=== PATIENT | female | born 1960 | race Caucasian/White ===

== ENCOUNTER 2016-04-01 12:20 | Day surgery (SDC) | payer OTHER ==
[~2016-04-01] VITALS: Ht 172.7 cm; Wt 72.2 kg
[~2016-04-01 12:20] MED LIST: CeFAZolin 2 Gm/50 mL D5W IV Premix IV ONE; LEVO100T97 PO; Lactated Ringer's 1,000 ML IV SCH
[2016-04-01] MEDS ORDERED: Propofol 10,000 mCg/mL 20 mL Inj ONE (12:21)
[2016-04-01] MEDS ORDERED: Lidocaine PF 1% 30 mL Inj ONE (12:21)
[2016-04-01 13:10] VITALS: BP 146/80; PULSE 61; RESP 16; O2SAT 99
[2016-04-01] MEDS ORDERED: CeFAZolin 2 Gm/50 mL D5W Duplex Bag IV ONE (13:25)
[2016-04-01] MEDS ORDERED: Lactated Ringer's 1,000 ML IV ONE (14:00)
[2016-04-01] MEDS ORDERED: Lactated Ringer's 1,000 ML IV SCH (15:01)
[2016-04-01] MEDS ORDERED: Lactated Ringer's 500 ML IV PRN (15:01)
--- NOTE | 2016-04-01 15:01 | PCM.HPANE ---
Patient Data Surgeon Admitting Provider: Attending Provider:James Pacheco MD Primary Care Physician:Varun Luna MD Other Provider:Yadira Falk Anesthesia Reason for Visit Left Breast Cancer Ht/WT & BMI Height (Feet): 5 Height (Inches): 8 Weight (Kilograms): 72.2 Body Mass Index 24.00 Allergies Coded Allergies: No Known Allergies (Verified Allergy, Unknown, 03/31/16) Past Anesthesia History Anesthesia History: Denies:: Anesthesia Reactions, Fam Anesthesia Reaction, Malignant Hyperthermia Diabetes History Hx Diabetes?: No MRSA MRSA: No Medications Home Meds Incl Beta Solitario: No Reported Medications Levothyroxine (Synthroid)100 Mcg [id number] Mcg PO DAILY Ref 0 03/20/16 History History of ENT Problems?: No Hx of Heart Problems?: No Hx of Respiratory Problem?: No Hx Neurologic Problems?: No Hx of GI Problems?: No Hx of Problems?: No Female Hx: Positive for:: Problems with Breasts? (03/2016 ) Denies:: Currently (post menopausal) Hx Musculoskeletal Problems?: Yes Hx of Psycho/Social Problems?: No Hx Surgeries?: Yes (r carpal tunnel, ovarian cyst, ) Hx Any Other Health Problems?: No Other History: Positive for:: Cancer (l breast) Endocrine Disease Thyroid Disease (hypo) Hx Diabetes: No Hx Alcohol Use: NoHx Substance Use: No Stop/Bang ANTHONY Risk Assessment: Low Risk, <3 Yes Risk Assessment Category Category 1A: Patient has history of documented sleep apnea, and HAS NOT received any narcotic, sedative or anesthesia administration during this stay. Category 1B: Patient has history of documented sleep apnea, and HAS received any narcotic , sedative or anesthesia administration during this stay Category 2: Patient has SUSPECTED Obstructive Sleep Apnea, and HAS received any narcotic , sedative or anesthesia administration during this stay. Category 3: Patient has SUSPECTED Obstructive Sleep Apnea and HAS NOT received narcotic, sedative or anesthesia administration during this stay. Category 4: Outpatient in Procedural Areas with known sleep apnea or who screen positive for High Risk via the STOP/BANG questionnaire. Exam Exam Vital Signs Vital Signs Date Time Temp Pulse Resp B/P Pulse Ox O2 Delivery O2 Flow Rate FiO2 04/01/16 13:10 36.7 61 16 146/80 99 Room Air General Appearance: Alert HEENT/AIRWAY: MP 3 Lungs: Clear to Auscultation Heart: Exam Unremarkable Plan Impression Patient chart reviewed, patient interviewed and anesthestic plan with risks, benefits, and alternatives discussed, and informed consent obtained. NPO Status: 1000 04/01/16 ASA Physical Status: ASA2 Mod Systemic Disease Anesthetic Plan: MAC Bene/Risks/Altern/Consents: Yes HP Complete Prior to Induction: Yes Joey Middleton DO Apr 01, 2016 13:58
[2016-04-01] MEDS ORDERED: fentaNYL-PF 50 mCg/mL 2 mL Inj IVPUSH PRN (15:05)
[2016-04-01] MEDS ORDERED: HYDROmorphone 1 mg/mL Inj IVPUSH PRN (15:05)
[2016-04-01] MEDS ORDERED: Ondansetron 2 mg/mL 2 mL Inj IVPUSH PRN (15:05)
[2016-04-01] MEDS ORDERED: EPHEDrine Sulfate 50 mg/mL Inj IVPUSH PRN (15:05)
[2016-04-01] MEDS ORDERED: Phenylephrine 10,000 mCg/mL Inj IVPUSH PRN (15:05)
[2016-04-01] MEDS ORDERED: Dexamethasone 4 mg/mL Inj IVPUSH PRN (15:05)
[2016-04-01] MEDS ORDERED: MetoCLOpramide 5 mg/mL 2 mL Inj IVPUSH PRN (15:05)
[2016-04-01] MEDS ORDERED: HepLOK Flush 10 Unit/mL 10 mL Inj IVFLUSH ONE (15:12)
[2016-04-01] MEDS ORDERED: Bupivacaine-MPF 0.5% 30 mL Inj INFILTRATE ONE (15:13)
[2016-04-01 15:59] VITALS: BP 160/95; PULSE 66; RESP 16; O2SAT 100
--- NOTE | 2016-04-01 16:01 | PCM.ANEP2 ---
Post Anesthesia Evaluation ASA/CMS Post Anesthesia VS in Patient's Normal Range?: Yes Resp Stable; Airway Patent?: Yes CV Function & Hydration Stable: Yes Mental Status Recovered?: Yes Pain control Satisfactory?: Yes N/V Control Satisfactory?: Yes Joey Middleton DO Apr 01, 2016 16:01
--- NOTE | 2016-04-01 16:01 | PCM.ANEP1 ---
Post Anesthesia Phase 1 PACU Phase 1 Assessment Vital Signs Vital Signs Date Time Temp Pulse Resp B/P Pulse Ox O2 Delivery O2 Flow Rate FiO2 04/01/16 13:10 36.7 61 16 146/80 99 Room Air Anesthetic Administered: MAC Level of Alertness: Awake, talking SEVERINO's with Equal Strength: Yes Pain: No Nausea or Vomiting: No Oxygen Delivery: Room Air Lungs: Clear to Auscultation Joey Middleton DO Apr 01, 2016 16:01
[2016-04-01 16:02] VITALS: BP 170/93; PULSE 63; RESP 16; O2SAT 100
--- NOTE | 2016-04-01 18:14 | OP ---
[address] [address] OPERATIVE REPORT PATIENT: CORA DENISE V : 1960 MR#: [id number] ADMIT: 04/01/2016 JOB ID: [id number] DATE OF SURGERY: 04/01/2016 SURGEON: James Pacheco MD PREOPERATIVE DIAGNOSIS(ES): Left breast cancer. POSTOPERATIVE DIAGNOSIS(ES): Left breast cancer. PROCEDURE PERFORMED: 1. Tunneled right internal jugular central venous catheter with subcutaneous venous port placement. 2. Intraoperative fluoroscopy. 3. Intraoperative ultrasound. COMPLICATIONS: None. CONDITION OF THE PATIENT: Stable. ANESTHESIA: Monitored anesthesia care with local. INDICATIONS: The patient is a 56-year-old lady who noticed a prominence in her left armpit and then felt a lump in her armpit. 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 She is scheduled to start neoadjuvant chemotherapy and after discussing the risks, benefits, and alternatives, she is here today for port placement. PROCEDURE DETAILS: She was placed in a supine position and underwent sedation. The neck and chest were prepped and draped in the usual sterile fashion. Surgical time-out was undertaken using safety checklist and all were in agreement. I began by examining the right neck under ultrasound guidance and we then infiltrated the skin with 0.5% bupivacaine and entered the right internal jugular vein under ultrasound guidance. After first entered with a micropuncture kit, I dilated the tract and placed a regular 35 mm guidewire and checked placement fluoroscopically to make sure we are on the right side of the heart. After that, I made a pocket over the right pectoralis and anchored the port with PDS suture, and tunneled the catheter from the port to the skin puncture site in the neck. I measured the required length of the catheter using the wire fluoroscopically and cut the catheter to the appropriate size and dilated the wire using the introducer dilator sheath and then advanced the catheter through the sheath. After the catheter was in position, I aspirated the port to make sure it is aspirating well and flushing well. A final x-ray was done to make sure the catheter is lying well, with no kinks, and after that the port was flushed with 100 units/mL of heparin. The skin was reapproximated with Monocryl and this was dressed with Dermabond. She was recovered from sedation and was taken to the recovery room in stable condition.
[2016-04-21] MEDS ORDERED: ONDA8TAB7 PO (10:19)
[2016-04-21] MEDS ORDERED: PROC-4 PO (10:19)
[2016-08-05] MEDS ORDERED: FAMO20T PO (08:39)
== END 2016-04-01 23:59 | disposition home or self-care (01) ==
LOC: SAS 12:20
PROVIDERS: ATTEND Student in an Organized Health Care Education/Training Program
DX: C50.412 Malignant neoplasm of upper-outer quadrant of left female breast (principal); Z17.0 Estrogen receptor positive status [ER+]; E03.9 Hypothyroidism, unspecified
CPT/HCPCS: 36561; 77001; C1788; C1892; C1894; J0690; J1642; J7120

== ENCOUNTER 2016-10-06 05:49 | Day surgery (SDC) | payer OTHER ==
[2016-10-06] VITALS (15 sets, daily range): BP systolic 108–156; BP diastolic 62–86; PULSE 61–94; RESP 14–20; O2SAT 95–100
[~2016-10-06] VITALS: Ht 172.7 cm; Wt 73.5 kg
[2016-10-06] MEDS: Lactated Ringer's 1,000 ML IV SCH ×4 (05:00→21:58)
[~2016-10-06 05:49] MED LIST changes: -CeFAZolin 2 Gm/50 mL D5W IV Premix IV ONE; +FAMO20T PO; -Lactated Ringer's 1,000 ML IV SCH; +ONDA8TAB7 PO; +PROC-4 PO
[2016-10-06] MEDS ORDERED: EPHEDrine/NS 5 mg/mL 5 mL Syringe ONE (05:50)
[2016-10-06] MEDS ORDERED: Propofol 10,000 mCg/mL 20 mL Inj ONE ×2 (05:50→17:50)
[2016-10-06] MEDS ORDERED: fentaNYL-PF 50 mCg/mL 2 mL Inj ONE (05:50)
[2016-10-06] MEDS: CeFAZolin 2 Gm/50 mL D5W IV Premix IV SCH ×3 (06:00→11:40)
[2016-10-06] MEDS ORDERED: Bupivacaine-MPF 0.5% 30 mL Inj INJ ONE (07:50)
[2016-10-06] MEDS ORDERED: Lactated Ringer's 500 ML IV PRN ×2 (08:26→22:04)
[2016-10-06] MEDS ORDERED: Lactated Ringer's 1,000 ML IV SCH ×2 (08:26→22:04)
--- NOTE | 2016-10-06 08:26 | PCM.HPANE ---
Patient Data Surgeon Admitting Provider: Attending Provider:James Pacheco MD Primary Care Physician:Ada Archuleta Other Provider:Yadira Falk Anesthesia Reason for Visit Left Breast Cancer Ht/WT & BMI Height (Feet): 5 Height (Inches): 8.00 Weight (Kilograms): 73.5 Body Mass Index 24.00 Allergies Coded Allergies: No Known Allergies (Verified Allergy, Unknown, 03/31/16) Past Anesthesia History Anesthesia History: Denies:: Abnormal Airway, Anesthesia Reactions, Difficult Intubation, Fam Anesthesia Reaction (sister does not tolerate some anes...), Malignant Hyperthermia Diabetes History Hx Diabetes?: No MRSA MRSA: No Medications Hypertension Medication: No Home Meds Incl Beta Solitario: No Reported Medications Famotidine (Pepcid)20 Mg [id number] Mg PO PRN PRN heartburn 08/05/16 Ondansetron ODT (Zofran ODT)8 Mg Tablet8 Mg PO q8hrs PRN For Nausea 04/21/16 Levothyroxine (Synthroid)100 Mcg [id number] Mcg PO DAILY Ref 0 03/20/16 Discontinued Reported Medications Prochlorperazine Maleate (Compazine)10 Mg Rlbppr26 Mg PO q4hrs prn 04/21/16 History History of ENT Problems?: No HEENT History: Denies:: Abnormal Airway Cataracts Difficult Intubation Dysphagia Glaucoma Hearing Problem Sinus Problem TMJ Denture Type: None Teeth Condition: Within Normal Limits Hx of Heart Problems?: No Cardiovascular History: Denies:: AICD Abdominal Aortic Aneurism Atrial Fibrillation Cardiac Surgery Chest Pain Edema Heart Murmur Hypertension Irregular Heartbeat Pacemaker Peripheral Vascular Rheumatic Fever Hx of Respiratory Problem?: No Respiratory History: Denies:: Asthma COPD Emphysema Oxygen Administration Use of C-PAP Machine Hx Neurologic Problems?: No Neurological History: Denies:: Alzheimer's Disease CVA Dizziness Headaches Multiple Sclerosis Parkinson's Disease Seizures Hx of GI Problems?: Yes Hx of Problems?: No Genitourinary History: Denies:: Kidney Stones Urinary Tract Infection Female Hx: Positive for:: Problems with Breasts? (left breast current admission problem) Denies:: Currently (post menopausal) Skin History: Denies:: History Skin Disorders? Pressure Ulcers Hx Musculoskeletal Problems?: No Musculoskeletal History: Denies:: Back Injury Fibromyalgia Joint Replacement Musculoskeletal Trauma Myasthenia Gravis Osteoarthritis Rheumatoid Arthritis Systemic Lupus Hx of Psycho/Social Problems?: No Psycho Social History: Denies:: Anxiety Hx Depression Hx Surgeries?: Yes (r carpal tunnel, ovarian cyst, ) Hx Any Other Health Problems?: Yes Other History: Positive for:: Cancer (breast- left) Endocrine Disease Thyroid Disease (hypo) History Blood Transfusions: Positive for:: Accept Blood Products? Denies:: Blood Transfusions Hx Diabetes: No Hx Alcohol Use: YesAlcoholic Drinks Per Day: one to two drinks weeklyHx Substance Use: No Smoking Status: Never Smoker Have You Smoked inLast 12 mo: No Stop/Bang S-Snoring: Do You Snore Loudly: No T-Tired: feel tired, fatigued: No O-Obsered: Observed not breath: No P-Blood Pressure: treated: No B- Body Mass Index > 35 kg/m2: No A- Age over 50: Yes N- Neck Large Circumference: No G- Gender Male: No ANTHONY Total Score: 1 ANTHONY Risk Assessment: Low Risk, <3 Yes Risk Assessment Category Category 1A: Patient has history of documented sleep apnea, and HAS NOT received any narcotic, sedative or anesthesia administration during this stay. Category 1B: Patient has history of documented sleep apnea, and HAS received any narcotic , sedative or anesthesia administration during this stay Category 2: Patient has SUSPECTED Obstructive Sleep Apnea, and HAS received any narcotic , sedative or anesthesia administration during this stay. Category 3: Patient has SUSPECTED Obstructive Sleep Apnea and HAS NOT received narcotic, sedative or anesthesia administration during this stay. Category 4: Outpatient in Procedural Areas with known sleep apnea or who screen positive for High Risk via the STOP/BANG questionnaire. Exam Exam Vital Signs Vital Signs Date Time Temp Pulse Resp B/P Pulse Ox O2 Delivery O2 Flow Rate FiO2 10/06/16 06:39 36.2 72 18 145/78 99 Room Air General Appearance: Alert HEENT/AIRWAY: MP 2, Neck Movement (from, 3 fb) Lungs: Clear to Auscultation Heart: Regular Rate/Rhythm Meds/Labs/Diagnostics Admission Meds Current Medications Lactated Ringer's (Lr) 1,000 ml @ 120 mls/hr Q8H20M IV Last administered on t 05:57; Start 10/06/16 at 05:00; Stop 10/06/16 at 13:19 Plan Impression Patient chart reviewed, patient interviewed and anesthestic plan with risks, benefits, and alternatives discussed, and informed consent obtained. NPO per Anesth. Guidelines: Yes ASA Physical Status: ASA2 Mod Systemic Disease Anesthetic Plan: GA Bene/Risks/Altern/Consents: Yes HP Complete Prior to Induction: Yes Other Discussed GA. All questions were answered and she agrees to proceed. Lester Lowery MD Oct 06, 2016 07:09
[2016-10-06] MEDS ORDERED: MetoCLOpramide 5 mg/mL 2 mL Inj IVPUSH PRN ×3 (08:30→22:05)
[2016-10-06] MEDS ORDERED: fentaNYL-PF 50 mCg/mL 2 mL Inj IVPUSH PRN ×2 (08:30→22:05)
[2016-10-06] MEDS ORDERED: EPHEDrine Sulfate 50 mg/mL Inj IVPUSH PRN ×2 (08:30→22:05)
[2016-10-06] MEDS ORDERED: Phenylephrine 10,000 mCg/mL Inj IVPUSH PRN ×2 (08:30→22:05)
[2016-10-06] MEDS ORDERED: Ondansetron 2 mg/mL 2 mL Inj IVPUSH PRN ×3 (08:30→22:05)
[2016-10-06] MEDS ORDERED: HYDROmorphone 1 mg/mL Inj IVPUSH PRN ×2 (08:30→22:05)
[2016-10-06] MEDS ORDERED: Dexamethasone 4 mg/mL Inj IVPUSH PRN (08:30)
[2016-10-06] MEDS ORDERED: Lactated Ringer's 1,000 ML IV ONE (12:25)
[2016-10-06] MEDS ORDERED: HYDROmorphone PCA 0.2 mg/mL 30 mL Inj IV PRN (15:50)
[2016-10-06] MEDS ORDERED: HYDROmorphone 0.5 mg/0.5 mL iSecure Syringe IVPUSH PRN (15:50)
--- NOTE | 2016-10-06 17:07 | OP ---
[address] [address] OPERATIVE REPORT PATIENT: CORA DENISE V : 1960 MR#: [id number] ADMIT: 10/06/2016 JOB ID: [id number] DATE OF SURGERY: 10/06/2016 SURGEON: James Pacheco MD ASSISTANTS: Jorge Frederick MD and Neno Fong PA-C and LATIA PaulIII PREOPERATIVE DIAGNOSIS(ES): T1 N3 invasive ductal carcinoma multifocal of the left breast, status post neoadjuvant chemotherapy. POSTOPERATIVE DIAGNOSIS(ES): T1 N3 invasive ductal carcinoma multifocal of the left breast, status post neoadjuvant chemotherapy. PROCEDURE PERFORMED: Right prophylactic mastectomy. Left modified radical mastectomy with extended lymph node dissection. ESTIMATED BLOOD LOSS: 20 mL. COMPLICATIONS: None. CONDITION OF THE PATIENT: Stable. INDICATIONS: The patient is a 56-year-old lady who noticed a prominence in her left armpit in January 2016. This made her feel her axilla and feel a lump there. She did not notice any mass in the breast. This prompted her to go see her primary provider and then she had imaging. She went on to be diagnosed with multifocal T1c N3 invasive carcinoma with extensive lymph node involvement in the axilla. She got neoadjuvant chemotherapy with dose-dense Adriamycin and Cytoxan followed by Taxol. After discussing the risks, benefits, and alternatives, she is here today for left modified radical mastectomy with right prophylactic simple mastectomy. PROCEDURE DETAILS: She was placed in supine position and underwent smooth induction of general anesthesia. Both breasts and axilla were prepped and draped in the usual sterile fashion. Surgical time-out was undertaken using safety checklist, and all were in agreement. I began by first marking the incisions and created an elliptical incision around the right areola and raised skin flaps on the breast superiorly to the clavicle, medially to the midline, inferiorly to the inframammary fold. We then raised flaps laterally to the latissimus dorsi, and then with good hemostasis lifted the breast off the pectoralis fascia controlling the perforators with a combination of ties or electrocautery as appropriate. After detaching the specimen from the patient, we marked it orienting it with stitch superiorly and sent it off the field. I then directed my attention to the left breast making an elliptical incision around the areola and raised skin flaps superiorly to the clavicle, medially to the midline, inferiorly to the inframammary fold and laterally to the latissimus dorsi. I then lifted the breast off the pectoralis fascia starting medially and extending laterally towards the axilla. I initially tried to remove the axillary lymph node packet and breast en bloc, but due to difficulty with manipulation, I ended up amputating the specimen between the tail and the axillary lymph nodes. I marked it with a stitch to the superior aspect of the breast. Then I proceeded with axillary dissection, dissecting the lymph node packet free from the chest wall, preserving the long thoracic nerve and thoracodorsal nerve superiorly going up to the axillary vein, controlling the branches with clips and ligatures as needed. After all the attachments were taken down laterally and posteriorly, I lifted the pectoralis minor to proceed from level I to level II and level III lymph nodes. But most of the lymph nodes I could actually palpate were in the level I area. I then proceeded to trace the lymph node-bearing tissue medially and dissected it with a combination of blunt and sharp dissection and control the vessels with clips. I was finally able to detach the specimen on the medial aspect of the pectoralis minor with some sampling of level III nodes. After that, we ensured hemostasis and placed drains and closed both incisions with the two layers of 3-0 Vicryl deep dermal, followed by 4-0 Monocryl subcuticular. Dermabond was applied as a dressing. Patient was recovered from anesthesia and was taken to the recovery room in stable condition. LISSETT
--- NOTE | 2016-10-06 17:14 | PCM.ANEP1 ---
Post Anesthesia PACU Phase 1 Assessment Vital Signs Vital Signs Date Time Temp Pulse Resp B/P Pulse Ox O2 Delivery O2 Flow Rate FiO2 10/06/16 16:54 69 20 146/84 98 Nasal Cannula 4 10/06/16 16:46 61 16 140/75 100 Simple Mask 8 10/06/16 16:33 62 19 117/63 100 Simple Mask 8 10/06/16 16:23 36.0 70 17 117/62 100 Simple Mask 8 Anesthetic Administered: GA Level of Alertness: Sleeping, hard to arouse SEVERINO's with Equal Strength: Yes Pain: No Nausea or Vomiting: No CV Function & Hydration Stable: Yes Airway Device: Oxygen Delivery: Simple Mask Lungs: Clear to Auscultation PACU Phase 2 Assessment Complications: No Follow up Care: N/A Patient Instructions Provided: N/A Lester Lowery MD Oct 06, 2016 17:14
[2016-10-06] MEDS ORDERED: Ondansetron 2 mg/mL 2 mL Inj ONE ×2 (17:50)
[2016-10-06] MEDS ORDERED: FENTANYL ONE (17:50)
[2016-10-06] MEDS ORDERED: Rocuronium 10 mg/mL 5 mL Inj ONE ×2 (17:50)
[2016-10-06] MEDS ORDERED: Glycopyrrolate 0.2 MG/ML 1mL Inj ONE (17:50)
[2016-10-06] MEDS ORDERED: HYDROmorphone 1 mg/mL Inj ONE (17:50)
[2016-10-06] MEDS ORDERED: Ketamine 10 mg/mL 20 mL Inj ONE (17:50)
[2016-10-06] MEDS ORDERED: Propofol 10 mg/mL 20 mL Inj ONE (17:50)
[2016-10-06] MEDS ORDERED: Remifentanil 1 mg/3 mL Inj ONE (17:50)
[2016-10-06] MEDS ORDERED: Dexamethasone 4 mg/mL Inj ONE (17:50)
[2016-10-06] MEDS ORDERED: Neostigmine 1 mg/mL 10 mL Inj ONE (17:50)
[2016-10-06] MEDS: Dextrose 5% Lactated Ringer's 1,000 ML IV SCH (18:03)
--- NOTE | 2016-10-06 19:50 | NUR ---
arrival pt arrived on floor at 1750 from PACU. On assessment, R mastectomy site appears to have some bruising in the lateral aspect near axilla. Monitored again after 30 min and it appears to have increased in size. Notified MD and plan to take pt back to OR for hematoma evacuation. 90 ml blood out of JASMIN in about 1 hr on floor. at bedside pt denies pain, states has some discomfort. will monitor. corea patent, yellow urine. PIV right wrist/FA patent, fluids infusing. Port R chest, not accessed. 2L NC on arrival, started on continuous pulse ox, 100%, placed on RA where sats remained at 100%. Pt maintained NPO after arrival on floor for return to surgery.
--- NOTE | 2016-10-06 21:40 | NUR ---
Return to OR JASMIN drain on R produced 90 ml in one hour, MD aware. Pt seen by Tara at shift change and decision to return to OR for hematoma on R breast. Pt medicated with 0.5 mg dilauded and comfortable in room. at bedside, he would like to be notified post-op #2 when she has returned. D5LR infusing RFA (R chest port not accessed), corea patent and draining. SCD in place, HOB at 30. Pt taken back to OR at 2140, awaiting report after Sx.
--- NOTE | 2016-10-06 21:50 | PCM.HPANE ---
Patient Data Surgeon Admitting Provider:James Pacheco MD Attending Provider:James Pacheco MD Primary Care Physician:Ada Archuleta Other Provider:Yadira Falk Anesthesia Reason for Visit Left Breast Cancer Ht/WT & BMI Height (Feet): 5 Height (Inches): 8.00 Weight (Kilograms): 73.5 Body Mass Index 24.00 Allergies Coded Allergies: No Known Allergies (Verified Allergy, Unknown, 03/31/16) Past Anesthesia History Anesthesia History: Denies:: Abnormal Airway, Anesthesia Reactions, Difficult Intubation, Fam Anesthesia Reaction (sister does not tolerate some anes...), Malignant Hyperthermia Diabetes History Hx Diabetes?: No MRSA MRSA: No Medications Hypertension Medication: No Home Meds Incl Beta Solitario: No Reported Medications Famotidine (Pepcid)20 Mg [id number] Mg PO PRN PRN heartburn 08/05/16 Ondansetron ODT (Zofran ODT)8 Mg Tablet8 Mg PO q8hrs PRN For Nausea 04/21/16 Levothyroxine (Synthroid)100 Mcg [id number] Mcg PO DAILY Ref 0 03/20/16 Discontinued Reported Medications Prochlorperazine Maleate (Compazine)10 Mg Hixnwx85 Mg PO q4hrs prn 04/21/16 History History of ENT Problems?: No HEENT History: Denies:: Abnormal Airway Cataracts Difficult Intubation Dysphagia Glaucoma Hearing Problem Sinus Problem TMJ Denture Type: None Teeth Condition: Within Normal Limits Hx of Heart Problems?: No Cardiovascular History: Denies:: AICD Abdominal Aortic Aneurism Atrial Fibrillation Cardiac Surgery Chest Pain Edema Heart Murmur Hypertension Irregular Heartbeat Pacemaker Peripheral Vascular Rheumatic Fever Hx of Respiratory Problem?: No Respiratory History: Denies:: Asthma COPD Emphysema Oxygen Administration Use of C-PAP Machine Hx Neurologic Problems?: No Neurological History: Denies:: Alzheimer's Disease CVA Dizziness Headaches Multiple Sclerosis Parkinson's Disease Seizures Hx of GI Problems?: Yes Hx of Problems?: No Genitourinary History: Denies:: Kidney Stones Urinary Tract Infection Female Hx: Positive for:: Problems with Breasts? (left breast current admission problem) Denies:: Currently (post menopausal) Skin History: Denies:: History Skin Disorders? Pressure Ulcers Hx Musculoskeletal Problems?: No Musculoskeletal History: Denies:: Back Injury Fibromyalgia Joint Replacement Musculoskeletal Trauma Myasthenia Gravis Osteoarthritis Rheumatoid Arthritis Systemic Lupus Hx of Psycho/Social Problems?: No Psycho Social History: Denies:: Anxiety Hx Depression Hx Surgeries?: Yes (r carpal tunnel, ovarian cyst, ) Hx Any Other Health Problems?: Yes Other History: Positive for:: Cancer (breast- left) Endocrine Disease Thyroid Disease (hypo) History Blood Transfusions: Positive for:: Accept Blood Products? Denies:: Blood Transfusions Hx Diabetes: No Hx Alcohol Use: YesAlcoholic Drinks Per Day: one to two drinks weekly Hx Substance Use: No Smoking Status: Never Smoker Have You Smoked inLast 12 mo: No Stop/Bang S-Snoring: Do You Snore Loudly: No T-Tired: feel tired, fatigued: No O-Obsered: Observed not breath: No P-Blood Pressure: treated: No B- Body Mass Index > 35 kg/m2: No A- Age over 50: Yes N- Neck Large Circumference: No G- Gender Male: No ANTHONY Total Score: 1 ANTHONY Risk Assessment: Low Risk, <3 Yes Risk Assessment Category Category 1A: Patient has history of documented sleep apnea, and HAS NOT received any narcotic, sedative or anesthesia administration during this stay. Category 1B: Patient has history of documented sleep apnea, and HAS received any narcotic , sedative or anesthesia administration during this stay Category 2: Patient has SUSPECTED Obstructive Sleep Apnea, and HAS received any narcotic , sedative or anesthesia administration during this stay. Category 3: Patient has SUSPECTED Obstructive Sleep Apnea and HAS NOT received narcotic, sedative or anesthesia administration during this stay. Category 4: Outpatient in Procedural Areas with known sleep apnea or who screen positive for High Risk via the STOP/BANG questionnaire. Low Risk, <3 Yes Exam Exam Vital Signs Vital Signs Date Time Temp Pulse Resp B/P Pulse Ox O2 Delivery O2 Flow Rate FiO2 10/06/16 17:52 36.4 65 16 108/73 100 Nasal Cannula 2.00 10/06/16 17:34 36.3 65 14 136/78 100 Nasal Cannula 2 10/06/16 17:22 65 14 134/86 100 Nasal Cannula 2 10/06/16 17:14 Simple Mask 10/06/16 17:05 64 15 142/78 100 Nasal Cannula 4 10/06/16 16:54 69 20 146/84 98 Nasal Cannula 4 10/06/16 16:46 61 16 140/75 100 Simple Mask 8 10/06/16 16:33 62 19 117/63 100 Simple Mask 8 10/06/16 16:23 36.0 70 17 117/62 100 Simple Mask 8 General Appearance: Alert HEENT/AIRWAY: MP 2, Neck Movement (from, 3 fb) Lungs: Clear to Auscultation Heart: Regular Rate/Rhythm Meds/Labs/Diagnostics Admission Meds Current Medications Lactated Ringer's 1,000 ml @ 120 mls/hr Q8H20M IV Last administered on 07:29; Start 10/06/16 at 05:00; Stop 10/06/16 at 13:19; Status DC Cefazolin Sodium/ Dextrose/Premix (Ancef Inj/IV Premix) 50 ml @ 100 mls/hr PREOP IV Last administered on 10/06/16 07:47; Start 10/06/16 at 06:00; Stop 10/06 at 17:00; Status DC Cefazolin Sodium 2 gm 2 gm STK-MED ONCE IVPUSH Last administered on 10/06/16 11 :40; Start 10/06/16 at 11:40; Stop 10/06/16 at 12:14; Status DC Lactated Ringer's 1,000 ml @ ud STK-MED ONCE IV Last administered on 10/06/16 12:25; Start 10/06/16 at 12:25; Stop 10/06/16 at 12:26; Status DC Dextrose/Lactated Ringer's (D5 Lactated Ringer's) 1,000 ml @ 75 mls/hr [id number] IV Last administered on 10/06/16 18:03; Start 10/06/16 at 15:48 Plan Impression Patient chart reviewed, patient interviewed and anesthestic plan with risks, benefits, and alternatives discussed, and informed consent obtained. NPO per Anesth. Guidelines: Yes ASA Physical Status: ASA2 Plus Emergency Anesthetic Plan: GA Bene/Risks/Altern/Consents: Yes HP Complete Prior to Induction: Yes Mac Oviedo MD Oct 06, 2016 21:50
[2016-10-06] MEDS ORDERED: Labetalol 5 mg/mL 4 mL Inj IV PRN (22:05)
[2016-10-06] MEDS ORDERED: Atropine 0.4 mg/mL Inj IVPUSH PRN (22:05)
[2016-10-06] MEDS ORDERED: CeFAZolin 2 Gm/50 mL D5W Duplex Bag IV ONE (22:18)
[2016-10-07] VITALS (7 sets, daily range): BP systolic 116–147; BP diastolic 69–82; PULSE 84–91; RESP 12–18; O2SAT 98–100
--- NOTE | 2016-10-07 00:45 | PCM.ANEP1 ---
Post Anesthesia PACU Phase 1 Assessment Vital Signs Vital Signs Date Time Temp Pulse Resp B/P Pulse Ox O2 Delivery O2 Flow Rate FiO2 10/07/16 00:27 36.6 84 16 135/76 99 Room Air 10/07/16 00:05 36.1 91 12 147/76 100 Room Air 10/07/16 00:00 91 14 134/82 100 Room Air 10/06/16 23:55 91 14 133/73 100 Room Air 10/06/16 23:50 94 18 127/81 100 Room Air 10/06/16 23:45 90 20 141/79 100 Room Air 10/06/16 23:40 88 20 143/80 100 Simple Mask 8 10/06/16 23:35 36.0 88 16 156/82 100 Simple Mask 8 10/06/16 20:00 36.7 78 18 115/71 95 Room Air 10/06/16 17:52 36.4 65 16 108/73 100 Nasal Cannula 2.00 10/06/16 17:34 36.3 65 14 136/78 100 Nasal Cannula 2 10/06/16 17:22 65 14 134/86 100 Nasal Cannula 2 10/06/16 17:14 Simple Mask 10/06/16 17:05 64 15 142/78 100 Nasal Cannula 4 10/06/16 16:54 69 20 146/84 98 Nasal Cannula 4 10/06/16 16:46 61 16 140/75 100 Simple Mask 8 Anesthetic Administered: GA Level of Alertness: Sleepy, easy to arouse SEVERINO's with Equal Strength: Yes Pain: No Pain Scale Score: 3 Nausea or Vomiting: No CV Function & Hydration Stable: Yes Airway Device: Oxygen Delivery: Simple Mask Lungs: Clear to Auscultation PACU Phase 2 Assessment Complications: No Follow up Care: No Patient Instructions Provided: N/A Mac Oviedo MD Oct 07, 2016 00:45
--- NOTE | 2016-10-07 00:48 | OP ---
[address] [address] OPERATIVE REPORT PATIENT: CORA DENISE V : 1960 MR#: [id number] ADMIT: 10/06/2016 JOB ID: [id number] DATE OF SURGERY: 10/06/2016 SURGEON: PREOPERATIVE DIAGNOSIS(ES): Right chest wall hematoma after prophylactic mastectomy. POSTOPERATIVE DIAGNOSIS(ES): Right chest wall hematoma after prophylactic mastectomy. PROCEDURE PERFORMED: 1. Evacuation of right chest wall hematoma. 2. Washout and hemostasis. 3. Closure. INDICATIONS: The patient is a 56-year-old lady. I performed a right prophylactic mastectomy and left modified radical mastectomy with axillary lymph node dissection earlier today. In the postoperative period, she was found to have an obvious hematoma on the right side. She continued to be hemodynamically stable; after discussing the risks, benefits, and alternatives, she was brought to the operating room for evacuation of hematoma and possible hemostasis. PROCEDURE DETAILS: She was placed in a supine position, underwent smooth induction of general anesthesia, and right chest wall was prepped and draped in the usual sterile fashion. Surgical time-out was undertaken surgical checklist, and all were in agreement. I began by opening the skin incision and evacuating clots and hematoma. We evacuated close to 500 mL of blood, and thoroughly irrigated the space and did not find any obvious arterial bleeding. Several points of oozing were found and cauterized thoroughly. Upon extended examination, we did not find a clear atrial bleeding source. So we ended up putting FloSeal and placing the drain with a new JASMIN and closed the wound back up in layers of 3-0 Vicryl followed by 4-0 Monocryl. Dermabond was applied as a dressing, and after dried, we wrapped her chest wall in Kerlix and Scott wrap. She was recovered from anesthesia and was taken to the recovery room in a stable condition. LISSETT
--- NOTE | 2016-10-07 04:45 | NUR ---
Arrival to unit at 0020 from OR Pt A/Ox4, reports minimal pain at this time. Chest wrapped with gauze and MARGIE. JASMIN drains and corea emptied prior to arrival to unit. notified that procedure is complete and without complications. SCD in place, CPOX on. Pt has been resting without complaint, BP taken in R ankle. No SOB or chest pain. 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 Care continues
[2016-10-07] MEDS: Dextrose 5% Lactated Ringer's 1,000 ML IV SCH ×2 (05:08→15:20)
[2016-10-07] MEDS ORDERED: HYDROmorphone 1 mg/mL Inj IVPUSH PRN (07:55)
--- NOTE | 2016-10-07 09:22 | PCM.PNSURG ---
Subjective Date of Service: Oct 07, 2016 Date of Service: Oct 07, 2016 Visit Information: Reason for Visit Left Breast Cancer Surgery/Surgery Date Post-Op Day # Date of Admission: Hospital Day # Subjective: No acute overnight events. Pain well controlled when not moving on PO narcotics No nausea or vomiting Afebrile Overall feels well. Objective Vital Sign- Last 8 Hours Date Time Temp Pulse Resp B/P Pulse Ox O2 Delivery O2 Flow Rate FiO2 10/07/16 04:58 37.1 91 16 116/69 100 Room Air Intake and Output- Last 8 Hour 10/07/16 Cumulative From/Thru 07:00 09/29/16 16:25 - 10/07/16 06:33 Intake Total 950 ml 3850 ml Output Total 455 ml 725 ml Balance 495 ml 3125 ml Intake Oral 100 ml 300 ml IV Total 850 ml 3550 ml Output Urine Total 350 ml 370 ml Drainage Total 100 ml 250 ml Estimated Blood Loss 5 ml 105 ml General: Alert, Cooperative, No Acute Distress Neck: Supple Lungs: Normal Air Movement Chest: B/l mastectomy incisions c/d/i covered in dermabond. B/l drains with serosanguinous output. R drain 70, L drain 30 ccs. B/l ecchymosis but no evidence of hematoma. Extremities: Warm Neuro: Grossly Neurologically Intact Catheters: Urethral 2 Way Corea Assessment & Plan Impression 56F with multifocal left breast invasive ductal carcinoma and clinical N3 axillary nodes s/p neoadjuvant chemotherapy followed by prophylactic right simple mastectomy and left modified radical mastectomy with extended lymphadenectomy on 10/06 complicated by right breast hematoma requiring evacuation and washout in the OR. Convalescing appropriately in the immediate post-operative period without evidence of recurrent hematoma. Problems: Plan Neuro: PO oxycodone and APAP Cv/pulm: No issues GI: Advance to regular diet. Renal: Remove corea for TOV Heme/ID: Labs not necessary given her hemodynamic stability FEN: DC mIVF once tolerating sufficient PO Activity: Needs to ambulate with adequate pain control on PO meds only Prophy: No sqh in context of post-operative bleed Floor: Home, possibly today, once tolerating diet, voiding, and pain controlled on PO pain meds. Will need drain teaching prior to discharge. Jorge Frederick MD Oct 07, 2016 09:22
[2016-10-07] MEDS: Polyethylene Glycol (PEG) 17 Gm Powder PO SCH (09:27)
[2016-10-07] MEDS ORDERED: OXYC5TAB72 PO (10:02)
[2016-10-07] MEDS ORDERED: POLY17PO6 PO (10:02)
[2016-10-07] MEDS ORDERED: Acetaminophen PO (10:02)
--- NOTE | 2016-10-07 13:27 | NUR ---
Social Work- Brief Note/ Readiness for Discharge/Multidisciplinary Rounds Data: EMR reviewed. Pt is on day 1 of hospitalization s/p mastectomy per H&P. Pt discussed in multidisciplinary rounds. Pt may discharge later today. Pt's insurance is [employer] and PCP is Ada Archuleta. Pt's NOK is Mac Dyson, . SW met with pt and at bedside regarding d/c plan. Pt resides in [place] with her where she is independent at baseline with ADLs and self-care. Pt states her DPOA is on file but it is not found. B[employer]S DEVELOPER requested DPOA paperwork. Phone number and plan placed on whiteboard. All updated and agreeable to plan. Pt to discharge home with her to transport via POV. SW will continue to follow. Assessment: Pt who is independent at baseline. Plan: Pt to discharge home with her to transport via POV. No discharge needs at this time. SW will continue to follow. AL Shields
--- NOTE | 2016-10-07 18:10 | NUR ---
pain/mobility/education patient pain level has been well controlled with 5-10mg oxycodone PRN today. she's been up several times walking in [place] with staff physician and/or , patient steady on feet. discussed pain management when at home; small more frequent dose of pain medication when pain level started to go up instead of waiting until pain level gets too high requiring high doses of pain mends. reviewed stripping and emptying JASMIN drains with both patient and . they both verbalized understanding and agreed with plan of care. continue to monitor.
--- NOTE | 2016-10-08 04:07 | NUR ---
Pain/Activity Pt has been OOB X 3 this shift to BR with SBA. C/o pain with ambulation/movement 3 to 4 out of 10. Pt receiving 5mg PO Roxicodone and 650mg PO Tylenol for pain. No s/s of chest wall hematoma. Pt to discharge later today with . Per pt, will be by sometime in the a.m. to filler picker rx -they are signed and in pt chart - to fill and will then return to filler picker . JASMIN's left and right, draining min/mod serosanguinous fluid. Discussed with pt JASMIN care, pt to demonstrate back and understands.
[2016-10-08 06:30] VITALS: BP 126/76; PULSE 85; RESP 16; O2SAT 100
--- NOTE | 2016-10-08 07:25 | PCM.DISURG ---
Surgical Discharge Instruction Date of Service Oct 08, 2016 Dates of Hospitalization Date of Hospital Admission Providers Admitting Physician: Primary Care Physician: Ada Archuleta Attending Physician: James Pacheco MD Diet Discharge Diet: No restrictions Activity Discharge Activity-General: Be up and about, Activity as pain allows, No lifting >15 pounds for 2 weeks, No driving while taking narcotic Dressing and Incisional Care Dressing Instructions: Liquid skin glue will start to peel off after 7-10 days Hygiene: May shower, DO NOT soak incision under water, NO bathtub, hot tub or whirlpool Additional Instructions Discharge Instructions You may wear whatever supportive clothing is most comfortable for you. Please keep track of your drain output in a log. Call to have your drain removed when the output is less than 30 mL per day for 2 days in a row Call at any time with questions or concerns Follow Up Plan Follow Up Plan Follow up with Dr. Pacheco in the next 7-14 days. Call to confirm your appointment. Call your provider for: Fever, Chills, Wound redness, Increasing wound pain, Warmth to touch Jorge Frederick MD Oct 08, 2016 07:25
[2016-10-08] MEDS: Dextrose 5% Lactated Ringer's 1,000 ML IV SCH (07:48)
--- NOTE | 2016-10-08 07:57 | PCM.DC.SUR ---
Discharge Summary Date of Service: Oct 08, 2016 Date of Hospital Admission: 10/06/2016 Date of Operation(s): 10/06/2016 Date of Discharge: 10/08/2016 Diagnosis at Time of Discharge Primary Diagnosis: 1. T1 N3 invasive ductal carcinoma multifocal of the left breast, status post neoadjuvant chemotherapy. 2. Status post Right prophylactic mastectomy & Left modified radical mastectomy with extended lymph node dissection. 3. Right chest wall hematoma after prophylactic mastectomy 4. Status post Evacuation of right chest wall hematoma. Other Medical & Surgical History: 1. Hypothyroidism 2. Status post Ovarian cystectomy 3. Status post Carpal tunnel release 4. Status post Right internal jugular tunneled central venous catheter with port placement Problems: Operation Status post Right prophylactic mastectomy, Left modified radical mastectomy with extended lymph node dissection, & takeback for excision of right chest wall hematoma Brief History and Physical: The patient is a 56-year-old lady who noticed a prominence in her left armpit in January 2016. This made her feel her axilla and feel a lump there. She did not notice any mass in the breast. This prompted her to go see her primary provider and then she had imaging. She went on to be diagnosed with multifocal T1c N3 invasive carcinoma with extensive lymph node involvement in the axilla. She got neoadjuvant chemotherapy with dose-dense Adriamycin and Cytoxan followed by Taxol. After discussing the risks, benefits, and alternatives, she consulted Dr. Pacheco for left modified radical mastectomy with right prophylactic simple mastectomy. Hospital Course: The patient was admitted with history, presentation, and workup consistent with T1 N3 invasive ductal carcinoma multifocal of the left breast, status post neoadjuvant chemotherapy; and underwent the above-mentioned operation without complication. See operative report for details of the procedure. After returning to the unit the day of surgery the patient developed a right chest wall hematoma & was taken back to the operating room for excision & hemostasis. See takeback operative report for details. Afterwards the patient postsurgical recovery was uneventful. The patient was able to exhibit signs of bowel function postoperatively. The patient was stable for discharge on postop day #2. At the time of discharge the patient was voiding without difficulty, passing gas, tolerating a normal diet without nausea or vomiting, pain controlled only with minimal narcotic analgesics as needed, ambulating with assistance, with clean, dry, and intact surgical wounds without signs of significant infection, inflammation, and/or additional hematoma. There was minimal to moderate serosanguineous output from the patient's surgical drains. We discussed the postoperative care and medication and instructions, follow-up, and went to seek immediate medical attention. Nursing also educated the patient on drain management at home. The patient and her verbalized understanding. All questions were answered. She will follow-up with Dr. Pacheco in the outpatient general surgery clinic as planned. Pathology: Pending Disposition: Home in stable condition on postoperative day #2. Follow-up Plan: Follow-up with Dr. Pacheco an Outpatient General Surgery Clinic in 2 weeks for clinical RN sooner for drain removal if less than 30 mL output over a 24-hour period for 2 consecutive days. ([Acetaminophen]) 325 MG TABLET 650 MG PO Q6H PRN PRN For Moderate Pain Take 650 mg acetaminophen every 6 hours for baseline pain control. Famotidine (Pepcid) 20 Mg Tablet 20 MG PO PRN PRN PRN heartburn (Reported) Levothyroxine (Synthroid) 100 Mcg Tablet 100 MCG PO DAILY (Reported) Ondansetron ODT (Zofran ODT) 8 Mg Tablet 8 MG PO q8hrs PRN PRN For Nausea ( Reported) Polyethylene Glycol 3350 (Miralax) 17 Gm Powd.pack 17 GM PO DAILY PRN PRN For Constipation Take as needed to help pass smooth/soft stools while using narcotic pain meds. Hold for loose stools. oxyCODONE (oxyCODONE) 5 Mg Tablet 5-10 MG PO Q6H PRN PRN For Moderate Pain Discharge Medications: Discharge Prescriptions written for Zofran, MiraLAX, and percent oxycodone (see list above). copies to: Varun Luna MD, Scott PA-C Oct 08, 2016 07:57
[2016-10-08] MEDS: Polyethylene Glycol (PEG) 17 Gm Powder PO SCH (08:30)
[2016-10-08 08:51] VITALS: BP 130/73; PULSE 79; RESP 16; O2SAT 99
== END 2016-10-08 09:10 | disposition home or self-care (01) ==
LOC: SAS 05:49 → UNDOADMIN 17:49 → OSC 17:49 → SAS 10-08 09:10
PROVIDERS: ATTEND Student in an Organized Health Care Education/Training Program
DX: C50.412 Malignant neoplasm of upper-outer quadrant of left female breast (principal); L76.32 Postprocedural hematoma of skin and subcutaneous tissue following other procedure; Z92.21 Personal history of antineoplastic chemotherapy; E03.9 Hypothyroidism, unspecified
CPT/HCPCS: 19303; 19307; 21501; J0131; J0690; J1100; J1170; J2250; J2405; J2710; J3010; J7120